=== PATIENT | female | born 1985 | race Caucasian/White ===

== ENCOUNTER 2019-07-23 04:14 | Inpatient (IN) | payer OTHER ==
[~2019-07-23] VITALS: Ht 165.1 cm; Wt 61.2 kg
[2019-07-23] VITALS (13 sets, daily range): BP systolic 112–178; BP diastolic 79–120
[2019-07-23 04:26] LABS: BE(vivo) 1.3 mmol/L (-2 to +3); HCO3 25.8 mmol/L (22.0-26.0); PCO2 40.5 mmHg (35.0-45.0); PO2 66.1 mmHg (80.0-100.0); pH 7.422 (7.360-7.450); sO2 93.5 % (92.0-98.0)
[2019-07-23 04:36] LABS: ABSOLUTE NEUTROPHILS 3.3 thou/uL (1.4-8.2); BASOPHILS 0.5 % (0.0-2.0); EOSINOPHILS 1.2 % (0.0-3.0); HEMATOCRIT 42.2 % (37.0-47.0); HEMOGLOBIN 13.8 gm/dL (12.0-15.0); LYMPHOCYTES 28.7 % (24.0-44.0); MCHC 32.8 g/dL (28.0-37.0); MCV 91.4 fL (80.0-100.0); MONOCYTES 8.4 % (1.0-8.0); PLATELET COUNT 147 thou/uL (150-400); POLYS 61.2 % (36.0-66.0); RBC 4.61 mil/uL (4.20-5.00); RDW 15.2 % (10.5-14.5); WBC 5.5 thou/uL (4.0-11.0)
[2019-07-23 04:44] LABS: CALCIUM 7.9 mg/dL (8.5-10.1); POTASSIUM 3.7 mmol/L (3.5-5.1)
--- NOTE | 2019-07-23 04:44 | NUR ---
MITCH MACIAS (MOTHER) [phone] PER PD
[2019-07-23 04:47] LABS: SALICYLATE 5.7 mg/dL (2.8-20.0)
[2019-07-23 04:50] LABS: ALBUMIN 3.4 g/dL (3.4-5.0); TOTAL BILIRUBIN 0.5 mg/dL (0.2-1.0); TOTAL PROTEIN 6.9 g/dL (6.4-8.2)
[2019-07-23 05:21] LABS: URINE BILIRUBIN NEGATIVE (Negative); URINE BLOOD NEGATIVE (Negative); URINE CLARITY CLEAR; URINE COLOR YELLOW; URINE GLUCOSE-RANDOM* NEGATIVE (Negative); URINE KETONES NEGATIVE (Negative); URINE LEUKOCYTES-REFLEX NEGATIVE (Negative); URINE NITRITE-REFLEX NEGATIVE (Negative); URINE PROTEIN (DIPSTICK) NEGATIVE (Negative); URINE SPECIFIC GRAVITY 1.025 (1.005-1.035); URINE UROBILINOGEN 0.2 E.U./dl (0.2-1.0)
--- NOTE | 2019-07-23 05:22 | NUR ---
This nurse spoke to mother, Danielle Kilpatrick over the phone. Danielle has no idea when the pt took the pills, but guesses it may have been as far back as [phone] yesterday afternoon. States at 1400 pt was already in bed sleeping and was sleeping the rest of the evening, it wasn't until 0300 when they heard a "thud" and found pt collapsed on the floor that they saw her again. Mom has no idea how many pills she took. Mom reports pt has been "acting like she has schizophrenia" for a long time now. Reports she has been having delusions, been combative and uncontrollable, and making suicidal statements for months. Reports previous [place]22/18 [place] and was hospitalized at [facility]. Pt has apparently been diagnosed with a mental health disorder but mom doesn't know which disorder. Pt has apparently been prescribed mental health medication but mom doesn't know the name of the medications and states she has been noncompliant for an unknown amount of time. Mom reports [facility] is where pt was receiving the prescriptions, but she quit going there some time ago.
[2019-07-23 05:29] LABS: AMP/METHAMP POSITIVE (Negative); BARBITURATES Negative (Negative); BENZODIAZEPINES Negative (Negative); COCAINE Negative (Negative); METHADONE Negative (Negative); OPIATES Negative (Negative); PCP Negative (Negative)
--- NOTE | 2019-07-23 07:23 | NUR ---
TW ICU NURSE. UNABLE TO GIVE REPORT DT NURSE BEING UNAVAILABLE.
--- NOTE | 2019-07-23 07:40 | NUR ---
ATTEMPTED TO CALL REPORT TO ICU, NO ONE ANSWERING PHONE
[2019-07-23 07:42] LABS: CALCIUM 8.1 mg/dL (8.5-10.1); CREATININE 0.8 mg/dL (0.6-1.0); POTASSIUM 3.4 mmol/L (3.5-5.1)
--- NOTE | 2019-07-23 08:03 | NUR ---
PT GAVE VERBAL PERMSSION FOR US TO PROVIDE AN UPDATE TO THE PT'S STEP-MOM
--- NOTE | 2019-07-23 08:04 | NUR ---
POISION CONTROL CALLED FOR UPDATE
--- NOTE | 2019-07-23 08:30 | EKG ---
[facility] [place] [address] ELECTROCARDIOGRAM REPORT Name: SARAH NOBLE Room #: 170- ADM IN M.R.#: [id number] Admission: 07/23/19 Attend Phys: Pa Christianson MD Discharge: Date of : 81 Report #: [id number] THIS REPORT FOR: cc: [facility] - Clinic physician unknown [facility] - Clinic physician unknown Montez Berger MD [facility] ~ THIS REPORT FOR: //name// [facility] ED Test Date: 2019-07-23 Test Time: 05:56:12 Pat Name: SARAH NOBLE Department: Room: [facility] Gender: F 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: : 1985 Requested By: Domonique Robertson Order Number: [id number] MD: Montez Berger Measurements Intervals [place] Rate: 90 P: 78 [place]: 167 QRS: 71 QRSD: 110 T: 60 QT: 411 QTc: 503 Interpretive Statements Sinus rhythm Borderline prolonged QT interval Baseline wander in lead(s) V2 No previous ECG available for comparison Electronically Signed On 07-23-2019 8:28:32 CDT by Montez Berger [email or web address] <ELECTRONICALLY SIGNED> By: Montez Berger MD, FACC 07/23/19 0828 0556 0556 Montez Berger MD, [facility] /EPI
--- NOTE | 2019-07-23 08:31 | EKG ---
[facility] [place] [address] ELECTROCARDIOGRAM REPORT Name: SARAH NOBLE Room #: 170- ADM IN M.R.#: [id number] Admission: 07/23/19 Attend Phys: Pa Christianson MD Discharge: Date of : 81 Report #: [id number] THIS REPORT FOR: cc: [facility] - Clinic physician unknown [facility] - Clinic physician unknown Montez Berger MD [facility] THIS REPORT FOR: //name// 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 Researcher: : 1985 Requested By: Domonique Robertson Order Number: [id number] MD: Montez Berger Measurements Intervals [place] Rate: 103 P: 79 RI: 175 QRS: 67 QRSD: 113 T: 56 QT: 381 QTc: 499 Interpretive Statements Sinus tachycardia Borderline intraventricular conduction delay RSR' in V1 or V2, right VCD Borderline prolonged QT interval No previous ECG available for comparison Electronically Signed On 07-23-2019 8:28:54 CDT by Montez Berger [email or web address] <ELECTRONICALLY SIGNED> By: Montez Berger MD, [facility] 07/23/19 0828 0614 Montez Berger MD, [facility] /EPI
--- NOTE | 2019-07-23 09:14 | NUR ---
0910- Patient aggitated and not allowing RN to check blood pressure.
--- NOTE | 2019-07-23 10:14 | NUR ---
1000- DR. GARCÍA AND CARDIOLOGY BLEACH MIXER HERE WITH RN. PATIENT AGGITATED AND TOOK OFF BLOOD PRESSURE COUGH WITH PHYSICIAN ATTEMPT TO OBTAIN READING. PT AGREED TO HAVE IT TAKEN ON HER LEG. HOWEVER, SHE WAS AGGITATED. PER MD ORDER, OK TO CHECK LESS FREQUENTLY. PER CARDIOLOGY, WAIT FOR PATIENT TO FULLY SETTLE DOWN, THEN RECHECK BLOOD PRESSURE BEFORE TREATING WITH PRN PATIENT WAS AGGITATED WITH BP CHECK. NURSE TO CONTINUE TO MONITOR PATIENT STATUS.
--- NOTE | 2019-07-23 12:05 | NUR ---
1205- Dr. Hernandez in room talking with patient.
--- NOTE | 2019-07-23 12:42 | NUR ---
Patient refused temp. She is very aggitated and does not want anyone to bother her. When staff not interjecting with her, she rests quietly.
[2019-07-23 17:11] LABS: BE(vivo) 4.2 mmol/L (-2 to +3); PCO2 38.9 mmHg (35.0-45.0); PO2 77.3 mmHg (80.0-100.0); pH 7.475 (7.360-7.450); sO2 96.2 % (92.0-98.0)
--- NOTE | 2019-07-23 17:58 | NUR ---
Nurse talked with patients mom twice today. When patients mom calls, she asks in general how she is doing, nurse provides reassurance. Dr. Hernandez rounded on patient. Dr. Phelan rounded on patient, orders obtained for re-evaluation of labs. This was performed. ABG results noted to physician, plan to keep IV fluids as ordered. Patient is maintaining plan of care as evidenced by RR-teens, Heart rate and rhythm- regular and normal 80's-90's, Oxygenation >92%. Patient does get aggitated when interventions performed, blood pressure, lab draws, assessments.
--- NOTE | 2019-07-23 18:01 | NUR ---
Patient denies feeling like she wants to harm herself this afternoon. Sitter 1:1 provided for constant observation.
[2019-07-24] VITALS (12 sets, daily range): BP systolic 132–167; BP diastolic 68–101
[2019-07-24 05:58] LABS: BASOPHILS 0.4 % (0.0-2.0); EOSINOPHILS 1.7 % (0.0-3.0); HEMATOCRIT 39.4 % (37.0-47.0); HEMOGLOBIN 13.1 gm/dL (12.0-15.0); LYMPHOCYTES 24.2 % (24.0-44.0); MCH 30.1 pg (26.0-34.0); MCHC 33.2 g/dL (28.0-37.0); MCV 90.6 fL (80.0-100.0); MONOCYTES 7.7 % (1.0-8.0); PLATELET COUNT 140 thou/uL (150-400); RBC 4.35 mil/uL (4.20-5.00); RDW 15.4 % (10.5-14.5); WBC 7.6 thou/uL (4.0-11.0)
--- NOTE | 2019-07-24 06:01 | NUR ---
PT IS DROWSY BUT WILL ANSWER ORIENTATION QUESTIONS WHEN WOKEN UP. SHE IS OREINTED TO SELF, SITUATION AND TIME. SHE REFUSES TO HAVE HER BP TAKEN ON HER ARM SAYING THAT IT HURTS. WHEN RN TRIED TO PERSUADE PT TO BE A LITTLE PATIENT WHILE TO ALLOW BP TO BE MORE ACCURATELY MEASURED ON HER ARM, PT BECAME ANGRY AND STARTED TO YELL INAPPROPRITE WORDS. HENCE, BP READINGS FROM THIS SHIFT WAS TAKEN FROM PT'S LEFT LEG. SPOKE TO PTS MOM AT 2208 WHEN SHE CALLED, UPDATED HER ABOUT PT'S STATUS AND VITALS AT THAT TIME. PT'S MOM SAID SHE WILL LIKE TO TALK TO SHILA IN ORDER TO GET AN UPDATE ON HER DTRS POC. POISON CONTROL NURSE ALSO CALLED AROUND 2250 TO ASK ABOUT PT'S MOST RECENT VITAL SINGS AND ASA LEVELS WHICH AT THAT TIME WAS 5.0 PT SLEPT ALL THROUGHT THE NOC. NO COMPLAINTS OF PAIN OR DISCOMFORT. SITTER IN ROOM. WILL CONTINUE TO CLOSELY MONITOR.
[2019-07-24 06:13] LABS: CALCIUM 7.6 mg/dL (8.5-10.1); CREATININE 0.8 mg/dL (0.6-1.0); MAGNESIUM 2.1 mg/dL (1.8-2.4)
--- NOTE | 2019-07-24 08:24 | EKG ---
[facility] [place] [address] ELECTROCARDIOGRAM REPORT Name: SARAH NOBLE Room #: 249-P ADM IN M.R.#: [id number] Admission: 07/23/19 Attend Phys: Pa Christianson MD Discharge: Date of : 81 Report #: [id number] THIS REPORT FOR: cc: [facility] - Clinic physician unknown [facility] - Clinic physician unknown Montez Berger MD [facility] ~ THIS REPORT FOR: //name// [facility] ED Test Date: 2019-07-23 Test Time: 04:08:56 Pat Name: SARAH NOBLE Department: Room: 249 Gender: F Salvage Inspector: CANDIDA : 1985 Requested By: Domonique Robertson Order Number: [id number] MD: Montez Berger Measurements Intervals [place] Rate: 120 P: 78 [place]: 125 QRS: 64 QRSD: 109 T: 40 QT: 348 QTc: 492 Interpretive Statements Sinus tachycardia RSR' in V1 or V2, probably normal variant Borderline prolonged QT interval Baseline wander in lead(s) V1 No previous ECG available for comparison Electronically Signed On 07-24-2019 8:22:29 CDT by Montez Berger [email or web address] <ELECTRONICALLY SIGNED> By: Montez Berger MD, [facility] 07/24/19 0822 7 7 Montez Berger MD, [facility] /EPI
--- NOTE | 2019-07-24 08:55 | EKG ---
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 Security Specialist: [facility] : 1985 Requested By: Laurita Guardado Order Number: [id number] MD: Montez Berger Measurements Intervals [place] Rate: 77 P: 87 [place]: 163 QRS: 73 QRSD: 90 T: 67 QT: 420 QTc: 476 Interpretive Statements Sinus rhythm No significant abnormality Compared to ECG 07/23/2019 06:14:04 Sinus tachycardia no longer present Electronically Signed On 07-24-2019 8:53:05 CDT by Montez Berger [email or web address] <ELECTRONICALLY SIGNED> By: Montez Berger MD, [facility] 07/24/19 0853 [phone] Montez Berger MD, [facility] /EPI
--- NOTE | 2019-07-24 09:28 | 2DMMODE ---
[facility] [address] [place] [address] 2 D/M-MODE ECHOCARDIOGRAM Name: SARAH NOBLE Room #: 249-P ADM IN M.R.#: [id number] Admission: 07/23/19 Attend Phys: Pa Christianson MD Discharge: Date of : 81 Report #: [id number] THIS REPORT FOR: cc: [facility] - Clinic physician unknown [facility] - Clinic physician unknown Freddie Newton MD ~ APPROVED REPORT Study performed: 07/24/2019 08:40:13 EXAM: Comprehensive 2D, Doppler, and color-flow Echocardiogram Patient Location: ICU Room #: 249 Status: routine BSA: 1.67 HR: 77 bpm BP: 151/94 mmHg Rhythm: NSR Other Information Study Quality: Good Indications Arrhythmia 2D Dimensions RVDd: 30.12 mm IVSd: 9.83 (7-11mm) LVOT Diam: 18.13 (18-24mm) LVDd: 42.23 mm PWd: 9.66 (7-11mm) Ascending Ao: 27.96 (22-36mm) LVDs: 27.90 (25-40mm) Aortic Root: 22.65 mm IVC: 19.00 mm Volumes Left Atrial Volume (Systole) Single Plane 4CH: 47.68 mL Single Plane 2CH: 30.31 mL LA ESV Index: 24.00 mL/m2 Aortic Valve AoV Peak Rupesh.: 1.12 m/s AO Peak Gr.: 4.98 mmHg LVOT Max P.61 mmHg LVOT Max V: 1.07 m/s LARISSA Vmax: 2.[address] [facility] [address] [place] [address] 2 D/M-MODE ECHOCARDIOGRAM Name: SARAH NOBLE Room #: 249-P [facility]#: [id number] Admission: 07/23/19 Attend Phys: Pa Christianson, Discharge: Date of : 81 Report #: [id number] Mitral Valve E/A Ratio: 1.5 MV Decel. Time: 180.18 ms MV E Max Rupesh.: 0.75 m/s MV A Rupesh.: 0.51 m/s MV PHT: 52.25 ms IVRT: 73.82 ms Pulmonary Valve PV Peak Rupesh.: 0.75 m/s PV Peak Gr.: 2.26 mmHg Pulmonary Vein P Vein S: 0.67 m/s P Vein A: 0.20 m/s P Vein D: 0.48 m/s P Vein A Dur.: 60.0 msec P Vein S/D Ratio: 1.40 Tricuspid Valve TR Peak Rupesh.: 2.06 m/s TR Peak Gr.: 16.93 mmHg PA Pressure: 22.00 mmHg Left Ventricle The left ventricle is normal size. There is normal LV segmental wall motion. There is normal left ventricular wall thickness. Left ventricular systolic function is normal. The left ventricular ejection fraction is within the normal range. LVEF is 60-65%. The left ventricular diastolic function is normal. Right Ventricle The right ventricle is normal size. The right ventricular systolic function is normal. Atria The left atrium size is normal. The right atrium size is normal. Aortic Valve The aortic valve is normal in structure. Trace aortic regurgitation. There is no aortic valvular stenosis. Mitral Valve The mitral valve is normal in structure. Trace to mild mitral regurgitation. No evidence of mitral valve stenosis. Tricuspid Valve The tricuspid valve is normal in structure. There is trace tricuspid [facility] [address] [place] [address] 2 D/M-MODE ECHOCARDIOGRAM Name: SARAH NOBLE Room #: 249-P [facility] IN ..#: [id number] Admission: 07/23/19 Attend Phys: Pa Christianson, Discharge: Date of : 81 Report #: [id number] regurgitation. Estimated PAP 22 mmHg. There is no pulmonary hypertension. Pulmonic Valve The pulmonary valve is normal in structure. There is no pulmonic valvular regurgitation. Great Vessels The aortic root is normal in size. IVC is normal in size and collapses >50% with inspiration. Pericardium There is no pericardial effusion. <Conclusion> The left ventricle is normal size. LVEF is 60-65%. The aortic valve is normal in structure. Trace aortic regurgitation. The mitral valve is normal in structure. Trace to mild mitral regurgitation. The tricuspid valve is normal in structure. There is trace tricuspid regurgitation. Estimated PAP 22 mmHg. There is no pulmonary hypertension. The pulmonary valve is normal in structure. There is no pericardial effusion. <ELECTRONICALLY SIGNED> By: Freddie Newton MD 07/24/19924 4 4 Freddie Newton MD /INF
--- NOTE | 2019-07-24 11:04 | NUR ---
HAVE ALLOWED PT TO SLEEP. ECHO HERE-WOKE PT UP TO INFORM OF ECHO.PT FLAILING ARMS AROUND,NOT COOPERATIVE. ATIVAN GIVEN,ECHO DONE.'GÉNESIS SANTIAGO & ISABELLA IN TO SEE.PT NOT VERBAL,IGNORING ALL.CARE TURNED OVER TO JASON BHATTI.--VW
--- NOTE | 2019-07-24 11:28 | NUR ---
chart review. noted per eileen, 2 affidavits on chart, pt is agreeable to do inpt psychiatry currently when medical stable as of pysch visit yesterday. cm tried calling her mom cammy, no answer, and left message requested call back. no sure if she is homeless or if she stay with her mom. noted she had stay a [facility] in past [place] 2019 and has rediscover [place] in past. non compliant with medication. per chart. discussed during los, will have to continue bicarb iv until poison control say and then possible out of icu and will need inpt pysch. human arc to follow.
--- NOTE | 2019-07-24 13:19 | NUR ---
MOTHER, MITCH CALLED AT 1210. STATES THAT HER DAUGHTER TOOK 35 TABLETS OF XANAX, 2MG EACH. PATIENT C/O PAIN RT INDEX FINGER NAIL AREA. SWOLLEN, RED DRAINING AREA NOTED. NOTED TO AND CONFIRMS THAT SHE CHEWS HER FINGERNAILS.
--- NOTE | 2019-07-24 19:00 | NUR ---
PATIENT WAKING UP TO EAT MEALS AND SNACKS. AGREED TO TAKE POTASSIUM TABS WITH OUT INCIDENT. STATES THAT SHE IS NOT HEARING VOICES NOW. PATIENT SLEEPING MOST OF THE DAY. REMAINS ON 1:1 WATCH.
[2019-07-25] VITALS (14 sets, daily range): BP systolic 121–181; BP diastolic 74–115
[2019-07-25 04:26] LABS: HEMOGLOBIN 13.2 gm/dL (12.0-15.0); MCH 29.9 pg (26.0-34.0); MCV 90.6 fL (80.0-100.0); RBC 4.41 mil/uL (4.20-5.00); RDW 15.6 % (10.5-14.5)
[2019-07-25 05:06] LABS: CALCIUM 7.9 mg/dL (8.5-10.1); CREATININE 0.9 mg/dL (0.6-1.0); PHOSPHORUS 4.1 mg/dL (2.5-4.9); POTASSIUM 3.8 mmol/L (3.5-5.1)
--- NOTE | 2019-07-25 08:05 | NUR ---
Pt rested well through noc with 1:1 sitter at bedside. Pt tearful at times and non-cooperative re: having ABG drawn. Dr. Christianson made aware and canceled order for ABG. IVF decreased per orders as pt with crackles throughout lung ruvalcaba. o2 sat low 90s while sleeping. QTC within normal range, no arrhythmias noted. Progressing towards discharge goals.
--- NOTE | 2019-07-25 08:27 | NUR ---
RN ASSUMED CARE AT 0700. PATIENT RESTING AT THIS TIME. RN LIAISON AT BEDSIDE, ORDERS RECIEVED.
--- NOTE | 2019-07-25 16:23 | NUR ---
DARIA reviewed chart and spoke with nursing and attending physician. Pt remains in ICU with 1:1 sitter. Pt having stress test today. Psych following for transfer to inpt psych when medically stable. DARIA left voice message for pt's mother, Danielle Kilpatrick ([phone]). DARIA spoke with pt's stepmother, Tatianna ([phone]) via phone. Introduced role of DARIA. Pt with hx of mental health and substance abuse. Pt is considered to be homeless, but has been staying with Danielle. Pt was living in her car at times. Pt is not employed. Pt does not have health insurance. Pt has been to [facility] inpt psych and [facility] in psych in the past. Pt has had a therapist with [facility] and most recently been connected with [email or web address]. Pt's step mother states that pt is a college graduate and was able to manage her finances on her own. Pt has been to the [facility] for residential treatment and was going to AA meetings. Pt was sober for almost 3 years. Pt's step mom says that pt and her son lived in [place], and when her son graduated from high school in 2018, and moved out, that's when pt's drastic decline started. At one time, pt was working for [employer]. Pt with hx of chronic tobacco use and has told family that she has HTN, but has not seen a physician. Pt's address is in [place] (she uses her Dad and Stepmom's address). She was receiving food stamps in [place] at one time. Pt's family is in support of pt being transferred to an inpt facility when medically stable. DARIA is following to assist as needed with discharge planning.
[2019-07-26 04:26] VITALS: BP 147/87
[2019-07-26 04:30] VITALS: BP 147/87
--- NOTE | 2019-07-26 04:37 | NUR ---
Pt has been resting through the night but did have issue with the laborer pie bakery this morning. The pt was a bit irritable and stated that her arms hurt and she would prefer to NOT have labs drawn, while she was interacting with this scenario writer, the laborer pie bakery completed the stick and obtained her specimens. The pt stated that she didn't even feel the stick, then was declining her blood pressure assessment, unless it was taken on her leg. This was agreed on and she was offered something to drink, fresh ice, etc and the lights were lowered and she settled back down. The sitter is at the bedside, providing 1:1 observation. The bed is in the low/locked position, and the siderials are up x 3. Pt's QTc at the start of the shift was 421 ms and at 0200 was 428, no ectopy noted. Pt is slowly progressing toward her POC goals. Will continue to monitor.
[2019-07-26 06:11] LABS: ABSOLUTE NEUTROPHILS 3.7 thou/uL (1.4-8.2); BASOPHILS 0.5 % (0.0-2.0); EOSINOPHILS 3.8 % (0.0-3.0); HEMATOCRIT 41.3 % (37.0-47.0); HEMOGLOBIN 13.6 gm/dL (12.0-15.0); MCH 30.1 pg (26.0-34.0); MCV 91.2 fL (80.0-100.0); MONOCYTES 8.6 % (1.0-8.0); PLATELET COUNT 154 thou/uL (150-400); POLYS 62.1 % (36.0-66.0); RBC 4.53 mil/uL (4.20-5.00); RDW 15.3 % (10.5-14.5); WBC 5.9 thou/uL (4.0-11.0)
[2019-07-26 06:12] LABS: ALBUMIN 2.9 g/dL (3.4-5.0); CREATININE 0.9 mg/dL (0.6-1.0); MAGNESIUM 2.1 mg/dL (1.8-2.4); POTASSIUM 4.6 mmol/L (3.5-5.1); TOTAL BILIRUBIN 0.2 mg/dL (0.2-1.0); TOTAL PROTEIN 6.7 g/dL (6.4-8.2)
[2019-07-26 06:43] LABS: FOLIC ACID 12.1 ng/mL (8.6-58.9); TSH 2.519 uIU/mL (0.358-3.740)
[2019-07-26 13:31] VITALS: BP 119/74
--- NOTE | 2019-07-26 18:11 | NUR ---
ASSESSMENT DOCUMENTED. VSS. PT STATES "I WISH THEY WOULD HAVE JUST LET ME ." 1:1 SITTER PRESENT. CESPEDES DC'D. PT VOIDED AND HAD BM POST CESPEDES DC. SEIZURE PRECAUTIONS IN PLACE. NO S/SX DURING SHIFT. QTC INTERVAL 356. PT RESTING IN BED WITH SITTER AT BEDSIDE. WILL CONTINUE TO MONITOR.
[2019-07-26 20:23] VITALS: BP 143/104
--- NOTE | 2019-07-27 04:16 | NUR ---
FOLLOWING POC FOR SI PROTOCOLS AND WITH 1:1 SITTER. PT STATES SHE WANTS A SHOWER OR BATH. WE WASHED PT'S HAIR AND ALLOWED HER TO BRUSH HER TEETH. PT UP TO UNDERCOUNTER COMMODE FOR BOWEL AND URINATION. PT STATES SHE DOES NOT WANT BP AND 02 SENSOR ON CROWNING HAMMER OPERATOR. 0400 LAB CAME BY, PT ASKING THEM TO COME BACK LATER, AND TOLD PT THEY COULD NOT, THEN SHE STATES SHE CAN REFUSE, EDUCATED PT AND LABS WERE DRAWN. PT OVERALL MOOD WAS UP AND DOWN, WITH HIGHS AND TEARY LOWS. HOURLY ROUNDING, AND ROOM HAS BEEN SCRUBBED.
[2019-07-27 04:54] LABS: HEMATOCRIT 45.1 % (37.0-47.0); MCH 30.2 pg (26.0-34.0); MCHC 33.2 g/dL (28.0-37.0); RBC 4.96 mil/uL (4.20-5.00); RDW 15.5 % (10.5-14.5); WBC 6.8 thou/uL (4.0-11.0)
[2019-07-27 05:12] LABS: CALCIUM 8.7 mg/dL (8.5-10.1); CREATININE 0.8 mg/dL (0.6-1.0); POTASSIUM 4.4 mmol/L (3.5-5.1)
[2019-07-27 08:29] VITALS: BP 150/90
[2019-07-27 11:59] VITALS: BP 127/92
--- NOTE | 2019-07-27 18:20 | NUR ---
ASSESSMENT CHARTED. PT ALERT AND ORIENTED. ON SI PROTOCOL. ST WITH ACTIVITY. 1:1 SITTER AT THE BEDSIDE. PT ATTEMPTED TO LEAVE THE UNIT X1. DR. FLORES AND SECURITY NOTIFIED. NEW ORDERS NOTED. ORDERS GIVEN TO TRANSFER PT TO ROOM 434. REPORT CALLED IN TO TAMELA GOMEZ. PLAN TO BE TRASFERED TO [facility].
--- NOTE | 2019-07-27 19:20 | NUR ---
VSS-AFEBRILE. 1:[address] ORIENTED TO ROOM, SHOWERED. ALL SUICIDE PRECAUTIONS IN PLACE.
[2019-07-27 19:51] VITALS: BP 120/68
--- NOTE | 2019-07-28 02:04 | NUR ---
PT AMULATING TO BATHROOM WITH STANDBY ASSIST AND IS TOLERATING FAIR. DENIES PAIN. SITTER AT BEDSIDE. RESTING COMFORTABLY. NO NEEDS VOICED. FREQUENT OBSERVATION.
[2019-07-28 02:07] LABS: HEP B SURFACE Ab(ANTI-HBS Non Reactive (()); HEPATITIS C VIRUS AB <0.1 (0.0-0.9)
--- NOTE | 2019-07-28 08:18 | EKG ---
[facility] [place] [address] ELECTROCARDIOGRAM REPORT Name: SARAH NOBLE Room #: 434-P ADM IN M.R.#: [id number] Admission: 07/23/19 Attend Phys: Pa Christianson MD Discharge: Date of : 81 Report #: [id number] THIS REPORT FOR: cc: [facility] - Clinic physician unknown [facility] - Clinic physician unknown Montez Berger MD [facility] ~ THIS REPORT FOR: //name// [facility] Test Date: 2019-07-25 Test Time: 08:30:33 Pat Name: SARAH NOBLE Department: Room: 434 Gender: F Psychology Technician: Kostas SIEGEL : 1985 Requested By: Rocky Daniels Order Number: [id number] MD: Montez Berger Measurements Intervals [place] Rate: 81 P: 76 [place]: 162 QRS: 65 QRSD: 83 T: 63 QT: 402 QTc: 467 Interpretive Statements Sinus rhythm RSR' in V1 or V2, probably normal variant Compared to ECG 07/24/2019 07:52:50 No significant change was found Electronically Signed On 07-28-2019 8:16:49 CDT by Montez Berger [email or web address] <ELECTRONICALLY SIGNED> By: Montez Berger MD, [facility] 07/28/19815 9 9 Montez Berger MD, [facility] /EPI
[2019-07-28 11:00] VITALS: BP 153/79
--- NOTE | 2019-07-28 12:35 | NUR ---
ASSUMED PATIENT CARE AT 0700. PATIENT IS ALERT X ORIENTED X 4. PATIENT ON SUICIDAL IDEATION, SUICIDE PRECT IN PLACE WIT 1:1 SITTER AT BEDSIDE. PT IS INDEPENDENT AMBULATES TO [facility] WITHSTAND BY ASST. PT'S MOOD GOES UP AND DOWN. PT SAYS, SHE NEEDS TO GO HOME. PT HAD A CONVERSATION WITH THE DOCTOR SAYING THAT SHE DOESN'T WANT TO GO TO INPATIENT PSYCH UNIT, SHE NEEDS TO GO HOME. SHE ALSO SAID, SHE IS DISAPPOINTED AND WANT TO KILL HERSELF. NURSE TALKED TO BRANDON (ANTONIA) AND LET THEM KNEW THE SITUATION. AROUND 10 AM, SHE SHOUTED SAYING SHE NEED TO GO HOME, SECURITY WAS CALLED IN. WILL CONT TO MONITOR.
--- NOTE | 2019-07-28 13:54 | NUR ---
ON-GOING ASSESSMENT: EVON SPOKE WITH ATTENDING AND PSYCHIATRIST WHO FEEL PATIENT IS STABLE TO DISCHARGE TODAY TO [facility]. PT HAS NO INSURANCE SO CHOICES MAY BE LIMITED. CM REACHED OUT TO PATIENTS ROOM BUT NO ANSWER. PT CONTINUES TO BE ON 1:1. PT MAY NOT LEAVE AND IS TO GO TO INPATIENT PSYCH. EVON SPOKE WITH PATIENTS MOTHER MITCH TO UPDATE. SHE STATES SHE DOES NOT HAVE A PREFERENCE OF PSYCH FACILITY. CM REACHED OUT TO [facility] WHO STATES THEY ARE FULL. EVON SENT PAGE OUT TO [facility] AND AWAITING A CALL BACK. EVON ALSO CONTACTED [facility] AND FAXED A REFERRAL AND AWAITING STATUS ON BED AVAILABILITY. CM WILL CONTINUE TO FOLLOW TO ASSIST NEEDED.
--- NOTE | 2019-07-28 14:48 | NUR ---
SPIRITUAL CARE STAFF REFERRAL. THIS BASE PLY HAND MET WITH THE PATIENT WITH SITTER IN ROOM. WE DID LIFE REVIEW AND DISCUSSED THINGS THAT GIVE HER "HOPE".
[2019-07-28 16:16] VITALS: BP 133/80
[2019-07-28 21:00] VITALS: BP 142/90
--- NOTE | 2019-07-29 03:04 | NUR ---
ASSUMED CARE OF PT AT APPROXIMATELY 1900. PT IS A/O X4 WITH OCCASIONAL CONFUSED CONVERSATION.CONTINUES ON 1:1 SITTER OBSERVATION. FALL PRECAUTIONS IN PLACE. WILL CONTINUE TO MONITOR.
[2019-07-29 05:05] VITALS: BP 131/93
--- NOTE | 2019-07-29 07:30 | NUR ---
PT C/O WOUND ON HER L INDEX FINGER,PT STATED THAT IT WAS FROM HAVING THE CONT PULSE OX ON FOR SO LONG BUT THE SITTER STATED SHE OBSERVED THE PT CHEWING ON HER FINGER DURING PM SHIFT.PT REF TX AND PIC TO THAT FINGER,REPORT TO AM NURSE.
[2019-07-29 07:31] VITALS: BP 150/96
--- NOTE | 2019-07-29 08:12 | NUR ---
on-going assessment: EVON REACHED OUT EARLY THIS AM TO [facility] WHO STATES THEY ARE CURRENTLY AT CAPACITY. EVON SPOKE WITH [facility] WHO STATES THEY CANNOT ACCEPT PT DUE TO CAPABILITY. EVON SPOKE WITH [facility] WHO STATES THEY HAVE MANY HOLDING IN THEIR ER AND WILL NOT HAVE A BED OPEN TODAY. EVON SPOKE WITH [facility] WHO STATES THEY ARE FULL WELL. EVON ALSO REACHED OUT TO [facility] WHO STATES THEY ARE ALSO FULL.
--- NOTE | 2019-07-29 12:48 | NUR ---
PT HAS BEEN GETTING SLOWLY AGITATED SIN THIS AM. APPROX. AT 10:30 PT THREW GOWN ON FLOOR STATING SHE DONT WANT A GOWN ON THAT SHE WANTED REGULAR CLOTHES. THATSHE IS NOT A THREAT TO HERSELF OR OTHERS. PT THEN CAME TO THE NURSE STATION WITH ONLY NET UNDERWEAR ON DEMANDIND TO SPEAK TO THE POWER PLANT TECHNICIAN. PT THEN RAN TO THE ELEVATOR WHERE SECURITY AD STAFF MET HER. PT ESCORTED BACK TO ROOM THOUGH BECAME MORE AGITATED. DR. CAPPS NOTIFIED. GEODON 20MG IM GIVEN TO R BUTTOCK, PT WAS WILLING OF INJECTION. JAYDE FROM RISK MANAGEMENT SPOKE WITH PT. PT NOW SLEEPING. 1:[address] ORDER FOR RESTRAINT OBTAINED IF NECESSESARY.
[2019-07-29 21:44] VITALS: BP 119/854
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
--- NOTE | 2019-07-30 08:55 | NUR ---
Nutrition: Assessing due to LOS. Admit for TCA overdose, suicide attempt. Remains on 1:1 suicide precautions. Recently required IM injection yesterday d/t behaviors and running towards elevators. Conversation noted to be all over the place yesterday as well. Chart reviewed to limit stimuli to minimize agitation chances. No active nutrition problems identified. RN notes indicated pt ate well yesterday. Meal trends over 07/24 - 07/27 range mostly at 100% meals with an 80% meal average across 3 days. At healthy weight, 135#, and BMI 22.5 kg/m2. No other weight hx to review. Is awaiting transfer to another hospital once bed becomes available. Recent BM 07/28. No nutrition intervention needs identified at this time. Keep as low nutrition risk unless po intake declines.
--- NOTE | 2019-07-30 08:59 | NUR ---
ON-GOING ASSESSMENT: [facility]AC[facility]. CM ALSO REACHED OUT TO [facility] WHO STATES THEY ARE CURRENTLY FULL WELL. CM CONTACTED [facility] [place] WHO STATES THEY STILL CANNOT ACCEPT AND HAVE DECLINED DUE TO CAPABILITY. [facility] IS ONLY FOR SR PATIENTS. EVON REACHED OUT TO [facility] WHO STATED TO SEND A REFERRAL AND THEY WILL REVIEW BUT UNSURE ON BED STATUS. THEY REQUESTED CM FAXED REFERRAL TO [phone], CM SENT REFERRAL.
--- NOTE | 2019-07-30 10:14 | NUR ---
cm also contacted [facility] who states they are currently full but to call back this afternoon.
[2019-07-30 14:07] VITALS: BP 119/854
--- NOTE | 2019-07-30 15:53 | NUR ---
CM WAS NOTIFIED BY SECURITY THAT PATIENT DISCHARGED AND NO NEED FOR INPT PSYCH PLACEMENT PT HAS LEFT.
--- NOTE | 2019-07-30 17:11 | NUR ---
PT DISCHARGED TODAY AT 14:20. PT WAS STATING THAT SHE WILL BE DISCHARGED TODAY. PT AWARE OF HER RIGHTS OF INVOLUNTARY PATIENT HOLD AND THE TIME THAT IT HAD . PT WAS AGITATED THOUGH NOT THREATENING. MAVERICK MCCLAIN FROM RISK MANAGEMENT WAS IN AND SPOKE TO PT, HE AND PT CALLED THE/HER PUBLIC ATTOURNEY. PT NOT HAVING SUICIDAL IDEATIONS NOR A THREAT TO OTHERS. YENI WESTBROOK NOTIFIED AND I NOTIFIED DR. BROWN FOR DISCHARGE. CAB VOUCHER WAS PROVIDED. DISCHARGE SIGNED, NO SCRIPTS WERE GIVEN. PT REMAINED 1:1 OBSERVATION AND ESCORTED TO ED ENTRANCE UPON DC.
[2019-07-31 22:07] LABS: SYPHILIS AB Non Reactive (Non Reactive)
== END 2019-07-30 16:55 | disposition home or self-care (01) | DRG 917 ==
LOC: ER 04:14 → ICU 05:56 → EROBS 05:56 → ICU 08:51 → 4S 07-27 18:22
PROVIDERS: Emergency Medicine; Internal Medicine; Nurse Practitioner; Pediatrics; Student in an Organized Health Care Education/Training Program; ADMIT Internal Medicine; ATTEND Internal Medicine
DX: T43.012A Poisoning by tricyclic antidepressants, intentional self-harm, initial encounter (principal); J96.01 Acute respiratory failure with hypoxia; R45.851 Suicidal ideations; G93.40 Encephalopathy, unspecified; F17.210 Nicotine dependence, cigarettes, uncomplicated; F31.9 Bipolar disorder, unspecified; I49.9 Cardiac arrhythmia, unspecified; D69.6 Thrombocytopenia, unspecified; J32.9 Chronic sinusitis, unspecified; E87.6 Hypokalemia; Z88.1 Allergy status to other antibiotic agents; Y92.89 Other specified places as the place of occurrence of the external cause; Z71.51 Drug abuse counseling and surveillance of drug abuser; Z79.899 Other long term (current) drug therapy
CPT/HCPCS: 10078; 10102

== ENCOUNTER 2020-12-07 17:59 | Emergency (ER) | payer OTHER | END 2020-12-07 18:24 | disposition left against medical advice (07) | LOC: ER 17:59 | DX: Z76.0 Encounter for issue of repeat prescription (principal); Z53.21 Procedure and treatment not carried out due to patient leaving prior to being seen by health care provider; Z88.0 Allergy status to penicillin; Z88.1 Allergy status to other antibiotic agents ==